=== PATIENT | male | born 2000 | race Caucasian/White ===

== ENCOUNTER → 2024-12-16 | Outpatient (CLI) | payer BC ==
--- NOTE | 2024-12-17 12:36 | HMCIMG ---
EXAM: CR Left Knee, 3 views. CLINICAL HISTORY: Pain. COMPARISON: None provided. FINDINGS: No acute fracture or aggressive appearing osseous lesion. Joint spaces are within normal limits. There is no joint effusion appreciated. The soft tissues are unremarkable. IMPRESSION: 1. No acute osseous abnormality. /[place]
== END | disposition home or self-care (01) ==
LOC: RAH 10:58
PROVIDERS: ATTEND Internal Medicine
DX: M23.92 Unspecified internal derangement of left knee (principal)
CPT/HCPCS: 73560